=== PATIENT | female | born 1970 | race Two or more races ===

== ENCOUNTER 2019-09-03 00:16 | Emergency (ER) | payer OTHER ==
[~2019-09-03] VITALS: Ht 172.7 cm; Wt 80.0 kg
[2019-09-03] MEDS ORDERED: PROMETHAZINE 25 MG/ML, 1ML ONE (00:51)
[2019-09-03] MEDS ORDERED: DIPHENHYDRAMINE 50 MG/ML, 1ML ONE (00:51)
[2019-09-03] MEDS ORDERED: METOCLOPRAMIDE 5 MG/ML, 2ML ONE (00:52)
[2019-09-03] MEDS ORDERED: MORPHINE SULFATE 4 MG/ML, 1ML ONE (00:52)
--- NOTE | 2019-09-03 00:58 | NUR ---
PT MEDICATED PER MAR
[2019-09-03] MEDS ORDERED: METOCLOPRAMIDE 5 MG/ML, 2ML IVPush ONE (01:00)
[2019-09-03] MEDS ORDERED: DIPHENHYDRAMINE 50 MG/ML, 1ML IVPush ONE (01:00)
[2019-09-03] MEDS ORDERED: PROMETHAZINE 25 MG/ML, 1ML IM ONE (01:00)
[2019-09-03] MEDS ORDERED: MORPHINE SULFATE 4 MG/ML, 1ML IVPush PRN (01:00)
[2019-09-03] MEDS ORDERED: SODIUM CHLORIDE FLUSH 10ML SYR IVF ONE (01:00)
[2019-09-03] MEDS ORDERED: SODIUM CHLORIDE 0.9% 1,000ML IVBOLUS ONE (01:00)
--- NOTE | 2019-09-03 02:00 | NUR ---
RE-EVALUATION DONE. PATIENT DISCHARGED WITH PRESCRIPTION AND INSTRUCTION. VERBALIZED UNDERSTANDING.
[2019-09-03 02:01] VITALS: BP 96/56
== END 2019-09-03 02:04 | disposition home or self-care (01) ==
LOC: ED 01:33
DX: G43.C1 Periodic headache syndromes in child or adult, intractable (principal); R11.2 Nausea with vomiting, unspecified
CPT/HCPCS: 96361; 96372; 96374; 96375; 99283; J1200; J2270; J2550; J2765; J7030